=== PATIENT | female | born 1995 | race American Indian/Alaskan Native ===

== ENCOUNTER 2018-12-10 18:35 | Observation (INO) | payer BC ==
[2018-12-10 18:43] VITALS: BMI 33.5
[2018-12-10 20:16] LABS: BASO # 0.06 K/mm3 (0.0-2.0); BASO % 0.8 % (0.0-3.0); EOS # 0.1 (0.0-0.7); EOS % 0.6 % (1.5-5.0); HEMOGLOBIN 11.6 g/dL (12.0-16.0); LYMPH # 2.9 (1.2-3.4); LYMPH % 37.1 % (22.0-35.0); MEAN CORPUSCULAR HEMOGLOBIN 26.6 pg (25.0-35.0); MEAN CORPUSCULAR HGB CONC 32.9 g/dl (31.0-37.0); MEAN PLATELET VOLUME 9.2 fl (7.0-11.0); MONO # 0.6 (0.1-0.6); RBC 4.36 10^6/uL (3.5-6.1); RED CELL DISTRIBUTION WIDTH 15.1 % (11.5-14.5); WHITE BLOOD COUNT 7.9 10^3/uL (4.5-11.0)
--- NOTE | 2018-12-10 20:18 | ED PDOC ---
Arrival/HPI - General Chief Complaint: Breast Problem Time Seen by Provider: 12/10/18 18:37 Historian: Patient - History of Present Illness Narrative History of Present Illness (Text): 12/10/18 21:02 23-year-old female presents today with a one-week history of left-sided breast tenderness, redness and painful lump noted around the nipple. Patient denies fevers or chills. Denies any trauma or injury. Patient states about a week ago she had some soreness to the left breast and then noted a small lump that has been increasing in size. Patient states about the time that she noticed the lump she noticed some erythema and swelling surrounded the areola. Past Medical History - Provider Review Nursing Documentation Reviewed: Yes - Travel History Have you recently traveled outside [place] w/in the past 3 mons?: No - Infectious Disease Hx of Infectious Diseases: None - Psychiatric Hx Substance Use: Yes - Anesthesia Hx Anesthesia: No Family/Social History - Physician Review Nursing Documentation Reviewed: Yes Family/Social History: Unknown Family HX Smoking Status: Never Smoked Hx Alcohol Use: No Hx Substance Use: Yes Substance used: marijuana Allergies/Home Meds Allergies/Adverse Reactions: Allergies No Known Allergies Allergy (Verified 12/10/18 18:43) Home Medications: Home Meds Medication Instructions Recorded Confirmed No Known Home Med 12/10/18 12/10/18 Review of Systems - Review of Systems Constitutional: absent: Fatigue, Fevers Respiratory: absent: SOB, Cough Cardiovascular: absent: Chest Pain, Palpitations Gastrointestinal: absent: Abdominal Pain, Nausea, Vomiting Genitourinary Female: Other (breast pain) Musculoskeletal: absent: Back Pain, Neck Pain Skin: Cellulitis Neurological: absent: Headache, Dizziness Psychiatric: absent: Anxiety, Depression Physical Exam Vital Signs Reviewed: Yes Vital Signs Temp Pulse Resp BP Pulse Ox 12/10/18 18:43 98.6 F 94 H 18 137/89 99 Temperature: Afebrile Blood Pressure: Normal Pulse: Regular Respiratory Rate: Normal Appearance: Positive for: Well-Appearing, Non-Toxic, Comfortable Pain Distress: None Mental Status: Positive for: Alert and Oriented X 3 - Systems Exam Head: Present: Atraumatic Mouth: Present: Moist Mucous Membranes Neck: Present: Normal Range of Motion Respiratory/Chest: Present: Clear to Auscultation, Good Air Exchange. No: Respiratory Distress, Accessory Muscle Use Cardiovascular: Present: Regular Rate and Rhythm, Normal S1, S2. No: Murmurs Abdomen: No: Tenderness Breast/Axillary: Present: Erythema, Masses, Swelling, Tender to Palpation (left breast; there is a 3cm round tender mass noted posterior to the areola; + surrounding erythema around the areola. inverted nipped bilaterally. ). No: Axillary Lymphad, Nipple Discharge Neurological: Present: GCS=15 Skin: Present: Warm, Dry, Normal Color Psychiatric: Present: Alert, Oriented x 3 Medical Decision Making ED Course and Treatment: 12/10/18 21:05 23yr old female with 1 week history of left breast pain/swelling/mass. cbc; wnl cmp; wnl US of left breast; FINDINGS: SOLID MASSES: In the retroareolar region of interest; there is demonstration of an approximately 1.6 x 1.4 x 1.6 cm round solid heterogeneous mass. The possibility of intraductal papilloma or malignancy should be considered. No definite ductal dilatation is identified. Consideration could be given to correlation with mammography and/or MRI for further definition. CYSTIC MASSES: None. ARCHITECTURAL DISTORTION: None. ACOUSTICAL SHADOWING: None. SKIN THICKENING: None. AXILLARY ADENOPATHY: None. IMPRESSION: In the left retroareolar region; there is demonstration of an approximately 1.6 x 1.4 x 1.6 round solid heterogeneous mass. Considerations thought likely incl ude intraductal papilloma or malignancy. Consideration could be given to correlation with mammography and/or MRI for further definition. Electronically signed on December 10, 2018 10:24:22 PM EDT by: Bigg Feng M.D., M.B.A., Certified By [employer] Trained MRI and CT Specialist Clinically the patient is felt to have a cellulitis with abscess. Patient was started on vancomycin and Rocephin IV. Case was discussed with Dr. Lockhart in depth accepts observational status admission to [facility]. Case was discussed with the certified surgical first assistant in depth. all results discussed with patient and parent in depth. Impression: Cellulitis of breast, breast mass Admit obs [facility] Reassessment Condition: Re-examined, Improved - RAD Interpretation Radiology Orders: 12/10/18 19:30 BREAST UNILATERAL LEFT [US] Stat Disposition/Present on Arrival - Present on Arrival Any Indicators Present on Arrival: No History of DVT/PE: No History of Uncontrolled Diabetes: No Urinary Catheter: No History of Decub. Ulcer: No History Surgical Site Infection Following: None - Disposition Have Diagnosis and Disposition been Completed?: Yes Diagnosis: Cellulitis of breast, Breast mass Disposition: HOSPITALIZED Disposition Time: 23:00 Patient Plan: Observation Patient Problems: Current Active Problems Problem Status Onset Breast mass Acute Cellulitis of breast Acute Condition: FAIR
[2018-12-10 20:28] LABS: ALB/GLOB RATIO 1.5 (1.1-1.8); ALBUMIN 4.4 g/dL (3.0-4.8); ALT/SGPT 31 U/L (7-56); AST/SGOT 34 U/L (14-36); BLOOD UREA NITROGEN 13 mg/dL (7-21); CALCIUM 9.7 mg/dL (8.4-10.5); GFR NON-AFRICAN AMERICAN > 60
[2018-12-10] MEDS ORDERED: cefTRIAXone 1 gm 1 GM/100 ML BAG IVPB STA (23:14)
[2018-12-10] MEDS ORDERED: Vancomycin 1gm in NS 250ml 1 GM/250 ML BAG IVPB STA (23:14)
--- NOTE | 2018-12-11 00:05 | CP.PCM.HP ---
<Rigo Ren - Last Filed: 12/11/18 02:41> History of Present Illness - History of Present Illness History of Present Illness: HISTORY & PHYSICAL NOTE FOR HOSPITALIST SERVICE- DR. MEHDI REN PGY1 23 y/o F with no significant PMH presents to ED with complaint of L breast mass with areolar dimpling that she noticed about last week. She reports it is tender to palpation and hard. She reports she hasn't had symptoms like this before and doesn't usually notice breast nodules during her menstrual cycles. She denies any recent trauma to the area, galactorrhea or any other discharge. She denies any history of . She reports that she had about 40 pound intentional weight loss over the past 6 months. She has never had a mammogram done. She has no family history of breast cancer. She reports she had a Mirena IUD placed in 10/2017 until 02/2018. She reports regular menstrual cycles every 28 days lasting 3-4 days. LMP 11/25/18. She denies fevers, chills, night sweats, headache, dizziness, numbness, tingling, chest pain, palpitations, shortness of breath, nausea, vomiting, constipation, diarrhea, dysuria, hematuria. PMH: denies All: NKDA PSH: none SH: smokes marijuana daily. Denies ETOH or other illicit drug use. No IVDA Hosp: Denies recent FM: Mother: alive. At bedside. No medical problems. No breast cancer, no previous biopsies. Father: alive, healthy. Grandmother: HTN, no cancer Meds: none PMD: None Present on Admission - Present on Admission Any Indicators Present on Admission: No Review of Systems - Review of Systems Review of Systems: per HPI Past Patient History - Infectious Disease Hx of Infectious Diseases: None - Past Social History Smoking Status: Never Smoked - PSYCHIATRIC Hx Substance Use: Yes - SURGICAL HISTORY Hx Surgeries: No - ANESTHESIA Hx Anesthesia: No Meds Allergies/Adverse Reactions: Allergies Allergy/AdvReac Type Severity Reaction Status Date / Time No Known Allergies Allergy Verified 12/10/18 18:43 Physical Exam - Constitutional Appears: Well, Non-toxic, No Acute Distress - Head Exam Head Exam: NORMAL INSPECTION, NORMOCEPHALIC - Eye Exam Eye Exam: EOMI, Normal appearance - ENT Exam ENT Exam: Mucous Membranes Moist, Normal Exam - Neck Exam Neck exam: Positive for: Normal Inspection - Respiratory Exam Respiratory Exam: Clear to Auscultation Bilateral, NORMAL BREATHING PATTERN - Cardiovascular Exam Cardiovascular Exam: REGULAR RHYTHM, +S1, +S2 - GI/Abdominal Exam GI & Abdominal Exam: Soft. absent: Tenderness - Extremities Exam Extremities exam: Positive for: normal inspection. Negative for: calf tenderness - Back Exam Back exam: NORMAL INSPECTION - Neurological Exam Neurological exam: Alert, Oriented x3 - Psychiatric Exam Psychiatric exam: Normal Affect, Normal Mood - Skin Skin Exam: Dry, Intact, Warm Additional comments: Breast exam: R breast: normal appearance. Dimpled. No discharge, masses felt on palpation L breast: L nipple dimpling 5cm x 5cm circular region mild erythema around L areola 4cm x 4xm round circular, hard mass noted on palpation No nipple discharge Results - Vital Signs Recent Vital Signs: Last Vital Signs Temp 98.6 F 12/10/18 18:43 Pulse 94 H 12/10/18 18:43 Resp 18 12/10/18 18:43 BP 137/89 12/10/18 18:43 Pulse Ox 99 12/10/18 18:43 - Labs Result Diagrams: 12/10/18 20:10 12/10/18 20:10 Labs: Laboratory Results - last 24 hr 12/10/18 12/10/18 20:10 20:10 WBC 7.9 RBC 4.36 Hgb 11.6 L Hct 35.3 L MCV 81.0 MCH 26.6 MCHC 32.9 RDW 15.1 H Plt Count 398 MPV 9.2 Neut % (Auto) 53.5 Lymph % (Auto) 37.1 H [place] % (Auto) 8.0 H Eos % (Auto) 0.6 L Baso % (Auto) 0.8 Lymph # (Auto) 2.9 [place] # (Auto) 0.6 Eos # (Auto) 0.1 Baso # (Auto) 0.06 Absolute Neuts (auto) 4.21 Sodium 140 Potassium 4.3 Chloride 105 Carbon Dioxide 27 Anion Gap 13 BUN 13 Creatinine 0.7 Est GFR ( Amer) > 60 Est GFR (Non-Af Amer) > 60 Random Glucose 83 Calcium 9.7 Total Bilirubin 0.4 AST 34 ALT 31 Alkaline Phosphatase 49 Total Protein 7.5 Albumin 4.4 Globulin 3.0 Albumin/Globulin Ratio 1.5 Assessment & Plan - Assessment and Plan (Free Text) Assessment: 23 y/o F with no significant PMH presents for L sided breast abscess/mass Plan: L breast mass U/S 12/10: In the left retroareolar region; there is demonstration of an approximately 1.6 x 1.4 x 1.6 round solid heterogeneous mass. Considerations thought likely include intraductal papilloma or malignancy. Consideration could be given to correlation with mammography and/or MRI for further definition. -Pt is afebrile, normotensive. No discharge from breast. -s/p vanc/rocephin given in ED -start therapeutic cefazolin to cover MSSA -f/u official ultrasound read -General surgery consulted, will appreciate recs DVT PPX: SCD Case reviewed with attending physician, Dr. Mehdi Ren PGY1 <Cecy Lockhart - Last Filed: 12/11/18 03:28> Results - Vital Signs Recent Vital Signs: Last Vital Signs Temp 98.6 F 12/10/18 18:43 Pulse 90 12/10/18 22:00 Resp 16 12/11/18 01:34 BP 126/83 12/10/18 22:00 Pulse Ox 99 12/10/18 22:00 - Labs Result Diagrams: 12/10/18 20:10 12/10/18 20:10 Labs: Laboratory Results - last 24 hr 12/10/18 12/10/18 12/10/18 20:10 20:10 20:10 WBC 7.9 RBC 4.36 Hgb 11.6 L Hct 35.3 L MCV 81.0 MCH 26.6 MCHC 32.9 RDW 15.1 H Plt Count 398 MPV 9.2 Neut % (Auto) 53.5 Lymph % (Auto) 37.1 H [place] % (Auto) 8.0 H Eos % (Auto) 0.6 L Baso % (Auto) 0.8 Lymph # (Auto) 2.9 [place] # (Auto) 0.6 Eos # (Auto) 0.1 Baso # (Auto) 0.06 Absolute Neuts (auto) 4.21 Sodium 140 Potassium 4.3 Chloride 105 Carbon Dioxide 27 Anion Gap 13 BUN 13 Creatinine 0.7 Est GFR ( Amer) > 60 Est GFR (Non-Af Amer) > 60 Random Glucose 83 Calcium 9.7 Total Bilirubin 0.4 AST 34 ALT 31 Alkaline Phosphatase 49 Total Protein 7.5 Albumin 4.4 Globulin 3.0 Albumin/Globulin Ratio 1.5 Triglycerides 74 Cholesterol 168 LDL Cholesterol Direct 66 HDL Cholesterol 90 H Urine Color Urine Appearance Urine pH Ur Specific [place] Urine Protein Urine Glucose (UA) Urine Ketones Urine Blood Urine Nitrate Urine Bilirubin Urine Urobilinogen Ur Leukocyte Esterase Urine Opiates Screen Urine Methadone Screen Ur Barbiturates Screen Ur Phencyclidine Scrn Ur Amphetamines Screen U Benzodiazepines Scrn U Oth Cocaine Metabols U Cannabinoids Screen 12/11/18 12/11/18 00:46 00:48 WBC RBC Hgb Hct MCV MCH MCHC RDW Plt Count MPV Neut % (Auto) Lymph % (Auto) [place] % (Auto) Eos % (Auto) Baso % (Auto) Lymph # (Auto) [place] # (Auto) Eos # (Auto) Baso # (Auto) Absolute Neuts (auto) Sodium Potassium Chloride Carbon Dioxide Anion Gap BUN Creatinine Est GFR ( Amer) Est GFR (Non-Af Amer) Random Glucose Calcium Total Bilirubin AST ALT Alkaline Phosphatase Total Protein Albumin Globulin Albumin/Globulin Ratio Triglycerides Cholesterol LDL Cholesterol Direct HDL Cholesterol Urine Color Yellow Urine Appearance Sl cloudy Urine pH 7.0 Ur Specific [place] 1.020 Urine Protein Negative Urine Glucose (UA) Negative Urine Ketones Negative Urine Blood Negative Urine Nitrate Negative Urine Bilirubin Negative Urine Urobilinogen 4.0 H Ur Leukocyte Esterase Negative Urine Opiates Screen Negative Urine Methadone Screen Negative Ur Barbiturates Screen Negative Ur Phencyclidine Scrn Negative Ur Amphetamines Screen Negative U Benzodiazepines Scrn Negative U Oth Cocaine Metabols Negative U Cannabinoids Screen Positive H Attending/Attestation - Attestation I have personally seen and examined this patient.: Yes I have fully participated in the care of the patient.: Yes I have reviewed all pertinent clinical information: Yes Notes (Text): 12/11/18 03:04 Pt seen with the resident by the bedside. Case discussed in detail. Agree with assessment,documentation and plan of treatment. 12/11/18 03:25
[2018-12-11 01:18] LABS: HDL CHOLESTEROL 90 mg/dL (29-60)
[2018-12-11 01:29] LABS: LDL CHOLESTEROL 66 mg/dL (0-129)
[2018-12-11 01:35] LABS: BARBITURATES, UR NEGATIVE (NEGATIVE); BENZODIAZEPINES, UR NEGATIVE (NEGATIVE); OPIATES, UR NEGATIVE (NEGATIVE); PHENCYCLIDINE, UR NEGATIVE (NEGATIVE)
[2018-12-11 01:37] LABS: URINE BILIRUBIN NEGATIVE (NEGATIVE); URINE BLOOD NEGATIVE (NEGATIVE); URINE GLUCOSE (UA) NEGATIVE (NEGATIVE); URINE LEUKOCYTE ESTERASE NEGATIVE Leu/uL (NEGATIVE); URINE PROTEIN NEGATIVE mg/dL (<30 mg/dL)
[2018-12-11 01:38] LABS: URINE APPEARANCE SL CLOUDY (CLEAR); URINE COLOR YELLOW (YELLOW)
--- NOTE | 2018-12-11 03:49 | CP.PCM.CON ---
History of Present Illness - History of Present Illness History of Present Illness: General Surgery Consult Re: L breast abscess HPI: 23F presented to ER complaining of L breast lump and progressive tenderness x 1 week. She stated it is under the L nipple, hard, inflamed and slowly worsened. She never felt any masses or had similar symptoms in the past. Denies recent trauma to the area, galactorrhea or any other nipple discharge. Denies recent or . Reports 40 pound intentional weight loss in the past 6 months. No prior mammogram. Her only contraceptive use was a Mirena IUD placed in 10/2017 until 02/2018. LMP 11/25/18, and her mensrual cycles are regular. Denies fevers, chills, headache, dizziness, chest pain, palpitations, shortness of breath, nausea, vomiting, constipation, diarrhea, dysuria, hematuria. PMH: Denies PSH: Denies SH: No tobacco use. Occasional Social EtOH. Almost daily THC use FH: No history of cancer in family Meds: Denies All: NKDA Review of Systems - Review of Systems All systems: reviewed and no additional remarkable complaints except (as per HPI) Past Patient History - Infectious Disease Hx of Infectious Diseases: None - Past Social History Smoking Status: Never Smoked - HEENT Hx HEENT Problems: No - INTEGUMENTARY Hx Dermatological Problems: No - MUSCULOSKELETAL/RHEUMATOLOGICAL Hx Falls: No Hx Unsteady Gait: No - GASTROINTESTINAL Hx Gastrointestinal Disorders: No - GENITOURINARY/GYNECOLOGICAL Hx Genitourinary Disorders: No - PSYCHIATRIC Hx Substance Use: Yes - SURGICAL HISTORY Hx Surgeries: No - ANESTHESIA Hx Anesthesia: No Meds Allergies/Adverse Reactions: Allergies Allergy/AdvReac Type Severity Reaction Status Date / Time No Known Allergies Allergy Verified 12/10/18 18:43 - Medications Medications: Current Medications Cefazolin Sodium (Ancef 1gm In Ns) 1 gm in 100 mls @ 100 mls/hr IVPB Q8 AHMET; Protocol Physical Exam - Constitutional Appears: Non-toxic, No Acute Distress - Head Exam Head Exam: ATRAUMATIC, NORMOCEPHALIC - Eye Exam Eye Exam: EOMI, PERRL. absent: Scleral icterus - ENT Exam ENT Exam: Mucous Membranes Moist Additional comments: trachea midline - Neck Exam Neck exam: Positive for: Full Rom. Negative for: Lymphadenopathy, Tenderness - Respiratory Exam Respiratory Exam: NORMAL BREATHING PATTERN. absent: Respiratory Distress - Cardiovascular Exam Cardiovascular Exam: RRR. absent: Bradycardia, Tachycardia - GI/Abdominal Exam GI & Abdominal Exam: Soft. absent: Distended, Tenderness - Rectal Exam Rectal Exam: Deferred - Extremities Exam Extremities exam: Positive for: normal capillary refill. Negative for: calf tenderness, pedal edema - Back Exam Back exam: absent: CVA tenderness (L), CVA tenderness (R) - Neurological Exam Neurological exam: Alert, Oriented x3 - Skin Skin Exam: Dry, Warm - Additional Findings Additional findings: R breast: Normal appearance. Nipple inverted. No discharge, masses felt on p alpation. No axillary lymphadenopathy L breast: L nipple inverted. 5cm x 5cm circular region mild erythema around L areola. 3cm x 3cm round circular, hard mass noted on palpation in L upper outer qu adrant. Indurated, no fluctuance. No nipple discharge seen or expressed. No axillary lymphadenopathy. Nipple inversion noted to be her normal anatomy per pt. Nursing costumer present for breast exam. Results - Vital Signs Recent Vital Signs: Last Vital Signs Temp 98.6 F 12/10/18 18:43 Pulse 90 12/10/18 22:00 Resp 16 12/11/18 01:34 BP 126/83 12/10/18 22:00 Pulse Ox 99 12/10/18 22:00 - Labs Result Diagrams: 12/10/18 20:10 12/10/18 20:10 Labs: Laboratory Results - last 24 hr 12/10/18 12/10/18 12/10/18 20:10 20:10 20:10 WBC 7.9 RBC 4.36 Hgb 11.6 L Hct 35.3 L MCV 81.0 MCH 26.6 MCHC 32.9 RDW 15.1 H Plt Count 398 MPV 9.2 Neut % (Auto) 53.5 Lymph % (Auto) 37.1 H [place] % (Auto) 8.0 H Eos % (Auto) 0.6 L Baso % (Auto) 0.8 Lymph # (Auto) 2.9 [place] # (Auto) 0.6 Eos # (Auto) 0.1 Baso # (Auto) 0.06 Absolute Neuts (auto) 4.21 Sodium 140 Potassium 4.3 Chloride 105 Carbon Dioxide 27 Anion Gap 13 BUN 13 Creatinine 0.7 Est GFR ( Amer) > 60 Est GFR (Non-Af Amer) > 60 Random Glucose 83 Calcium 9.7 Total Bilirubin 0.4 AST 34 ALT 31 Alkaline Phosphatase 49 Total Protein 7.5 Albumin 4.4 Globulin 3.0 Albumin/Globulin Ratio 1.5 Triglycerides 74 Cholesterol 168 LDL Cholesterol Direct 66 HDL Cholesterol 90 H Urine Color Urine Appearance Urine pH Ur Specific [place] Urine Protein Urine Glucose (UA) Urine Ketones Urine Blood Urine Nitrate Urine Bilirubin Urine Urobilinogen Ur Leukocyte Esterase Urine Opiates Screen Urine Methadone Screen Ur Barbiturates Screen Ur Phencyclidine Scrn Ur Amphetamines Screen U Benzodiazepines Scrn U Oth Cocaine Metabols U Cannabinoids Screen 12/11/18 12/11/18 00:46 00:48 WBC RBC Hgb Hct MCV MCH MCHC RDW Plt Count MPV Neut % (Auto) Lymph % (Auto) [place] % (Auto) Eos % (Auto) Baso % (Auto) Lymph # (Auto) [place] # (Auto) Eos # (Auto) Baso # (Auto) Absolute Neuts (auto) Sodium Potassium Chloride Carbon Dioxide Anion Gap BUN Creatinine Est GFR ( Amer) Est GFR (Non-Af Amer) Random Glucose Calcium Total Bilirubin AST ALT Alkaline Phosphatase Total Protein Albumin Globulin Albumin/Globulin Ratio Triglycerides Cholesterol LDL Cholesterol Direct HDL Cholesterol Urine Color Yellow Urine Appearance Sl cloudy Urine pH 7.0 Ur Specific [place] 1.020 Urine Protein Negative Urine Glucose (UA) Negative Urine Ketones Negative Urine Blood Negative Urine Nitrate Negative Urine Bilirubin Negative Urine Urobilinogen 4.0 H Ur Leukocyte Esterase Negative Urine Opiates Screen Negative Urine Methadone Screen Negative Ur Barbiturates Screen Negative Ur Phencyclidine Scrn Negative Ur Amphetamines Screen Negative U Benzodiazepines Scrn Negative U Oth Cocaine Metabols Negative U Cannabinoids Screen Positive H - Imaging and Cardiology breast US Status: Image reviewed by me, Report reviewed by me (preliminary) Assessment & Plan - Assessment and Plan (Free Text) Assessment: 23F with Left upper outer quadrant breast abscess and L ciarra-areolar cellulitis Plan: - Continue abx - Warm compresses to area - Monitor for drainage/increased area of cellulitis - May consider aspiration to evaluate fluid Will D/W Dr. Nic Bateman PGY4
[2018-12-11] MEDS ORDERED: ceFAZolin 1 gm in NS 1 GM/100 ML BAG IVPB SCH (06:00)
[2018-12-11] MEDS: SULBACTAM IVPB SCH ×4 (06:57→22:18)
[2018-12-11] MEDS: AMPICILLIN IVPB SCH ×4 (06:57→22:18)
--- NOTE | 2018-12-11 13:33 | US ---
Date of service: 12/10/2018 HISTORY: Painful left breast lump adjacent to the nipple. LMP 11/25/2018 TECHNIQUE: Sonographic evaluation of both breast was performed. FINDINGS: RIGHT BREAST: Irregular solid mass corresponding findings on physical examination 1.4 x 1.5 x 1.6 cm. Peripheral hypervascularity Adjacent cutaneous and subcutaneous edema. Dilated duct 12:00 o'clock with debris. Diameter 4.6 mm. IMPRESSION: Solid irregular mass corresponding findings on physical examination. Increased vascularity, subcutaneous edema/cutaneous thickening. Findings are in all likelihood infectious/inflammatory. Dilated duct complaining debris. Recommend short-term interval follow-up following treatment. BIRADS: BIRADS 3 Probably Benign Recommendation: Short-interval follow-up advised for what is likely an infectious/inflammatory process/mastitis
[2018-12-11 15:32] VITALS: RESP 18
[2018-12-12] MEDS: AMPICILLIN IVPB SCH ×2 (03:58→10:02)
[2018-12-12] MEDS: SULBACTAM IVPB SCH ×2 (03:58→10:02)
[2018-12-12 07:40] LABS: BASO # 0.05 K/mm3 (0.0-2.0); BASO % 0.7 % (0.0-3.0); EOS # 0.1 (0.0-0.7); EOS % 1.2 % (1.5-5.0); HEMOGLOBIN 10.7 g/dL (12.0-16.0); LYMPH # 1.9 (1.2-3.4); LYMPH % 27.7 % (22.0-35.0); MEAN CELL VOLUME 81.1 fl (80.0-105.0); MEAN CORPUSCULAR HEMOGLOBIN 25.9 pg (25.0-35.0); MEAN CORPUSCULAR HGB CONC 31.9 g/dl (31.0-37.0); MEAN PLATELET VOLUME 8.9 fl (7.0-11.0); MONO # 0.8 (0.1-0.6); MONO % 11.8 % (1.0-6.0); RBC 4.13 10^6/uL (3.5-6.1); RED CELL DISTRIBUTION WIDTH 15.2 % (11.5-14.5); WHITE BLOOD COUNT 6.8 10^3/uL (4.5-11.0)
[2018-12-12 07:50] VITALS: BP 132/77; PULSE 62; TEMP 98.2; O2SAT 100
[2018-12-12 07:56] LABS: ALB/GLOB RATIO 1.3 (1.1-1.8); ALBUMIN 3.7 g/dL (3.0-4.8); ALT/SGPT 35 U/L (7-56); AST/SGOT 21 U/L (14-36); BLOOD UREA NITROGEN 13 mg/dL (7-21); CALCIUM 8.8 mg/dL (8.4-10.5); GFR NON-AFRICAN AMERICAN > 60
--- NOTE | 2018-12-12 08:50 | CP.PCM.PN ---
Subjective - Date & Time of Evaluation Date of Evaluation: 12/12/18 Time of Evaluation: 06:40 - Subjective Subjective: General Surgery Pt seen and examined. Feeling better this AM. Pain much better. Redness decreased. Pt wants to know when she can leave. Denies Fever/chills. Objective - Vital Signs/Intake and Output Vital Signs (last 24 hours): Temp Pulse Resp BP Pulse Ox 98.2 F 62 18 132/77 100 12/12/18 06:00 12/12/18 06:00 12/12/18 06:00 12/12/18 06:00 12/12/18 06:00 - Medications Medications: Current Medications Ampicillin Sodium/Sulbactam Sodium (Unasyn) 1.5 gm in 100 mls @ 100 mls/hr IVPB Q6H AHMET; Protocol Last Admin: 12/12/18 03:58 Dose: 100 mls/hr Ibuprofen (Motrin Tab) 400 mg PO Q6H PRN PRN Reason: Pain, Mild (1-3) Last Admin: 12/11/18 22:21 Dose: 400 mg - Labs Labs: 12/12/18 07:30 12/12/18 07:30 - Constitutional Appears: Non-toxic, No Acute Distress - Head Exam Head Exam: ATRAUMATIC, NORMOCEPHALIC - Eye Exam Eye Exam: EOMI, PERRL. absent: Scleral icterus - Respiratory Exam Respiratory Exam: NORMAL BREATHING PATTERN. absent: Respiratory Distress - Neurological Exam Neurological Exam: Alert, Awake - Skin Skin Exam: Dry, Warm - Additional Findings Additional findings: L breast: L nipple inverted. 4cm x 4cm circular region mild erythema around L areola. 3cm x 3cm round circular, hard mass noted on palpation in L upper outer quadrant. Indurated, no fluctuance. No nipple discharge seen or expressed. No axillary lymphadenopathy. Assessment and Plan - Assessment and Plan (Free Text) Assessment: 23F with Left upper outer quadrant breast abscess and L ciarra-areolar cellulitis Plan: - Can convert to PO abx - COntinue warm compresses to area -Follow up with Dr. Lucero as an outpatient in 1 week or earlier if symptoms worsen D/W Dr. Nic Bateman PGY4
--- NOTE | 2018-12-12 13:19 | CP.PCM.DIS ---
<Long Gutierrez - Last Filed: 12/12/18 13:37> Provider - Provider Date of Admission: 12/10/18 23:14 Attending physician: Yanique Johnson MD Consults: 12/11/18 01:30 General Surgery Consult Routine Comment: Consulting Provider: Brayan Lucero Consulting Physician: Brayan Lucero Reason for Consult: L breast abscess Time Spent in preparation of Discharge (in minutes): 45 Hospital Course - Lab Results Lab Results: Micro Results 12/10/18 21:30 Blood Blood Culture - Preliminary NO GROWTH AFTER 24 HOURS 12/10/18 20:10 Blood Blood Culture - Preliminary NO GROWTH AFTER 24 HOURS Most Recent Lab Values WBC 6.8 10^3/uL (4.5-11.0) 12/12/18 07:30 RBC 4.13 10^6/uL (3.5-6.1) 12/12/18 07:30 Hgb 10.7 g/dL (12.0-16.0) L 12/12/18 07:30 Hct 33.5 % (36.0-48.0) L 12/12/18 07:30 MCV 81.1 fl (80.0-105.0) 12/12/18 07:30 MCH 25.9 pg (25.0-35.0) 12/12/18 07:30 MCHC 31.9 g/dl (31.0-37.0) 12/12/18 07:30 RDW 15.2 % (11.5-14.5) H 12/12/18 07:30 Plt Count 329 10^3/uL (120.0-450.0) 12/12/18 07:30 MPV 8.9 fl (7.0-11.0) 12/12/18 07:30 Neut % (Auto) 58.6 % (50.0-68.0) 12/12/18 07:30 Lymph % (Auto) 27.7 % (22.0-35.0) 12/12/18 07:30 Pike % (Auto) 11.8 % (1.0-6.0) H 12/12/18 07:30 Eos % (Auto) 1.2 % (1.5-5.0) L 12/12/18 07:30 Baso % (Auto) 0.7 % (0.0-3.0) 12/12/18 07:30 Lymph # (Auto) 1.9 (1.2-3.4) 12/12/18 07:30 [place]ike # (Auto) 0.8 (0.1-0.6) H 12/12/18 07:30 Eos # (Auto) 0.1 (0.0-0.7) 12/12/18 07:30 Baso # (Auto) 0.05 K/mm3 (0.0-2.0) 12/12/18 07:30 Absolute Neuts (auto) 3.96 (1.4-6.5) 12/12/18 07:30 Sodium 138 mmol/L (132-148) 12/12/18 07:30 Potassium 4.1 mmol/L (3.6-5.0) 12/12/18 07:30 Chloride 109 mmol/L (98-107) H 12/12/18 07:30 Carbon Dioxide 22 mmol/L (21-33) 12/12/18 07:30 Anion Gap 12 (10-20) 12/12/18 07:30 BUN 13 mg/dL (7-21) 12/12/18 07:30 Creatinine 0.7 mg/dl (0.7-1.2) 12/12/18 07:30 Est GFR ( Amer) > 60 12/12/18 07:30 Est GFR (Non-Af Amer) > 60 12/12/18 07:30 Random Glucose 82 mg/dL (70-110) 12/12/18 07:30 Hemoglobin A1c 5.2 % (4.2-6.5) 12/10/18 20:10 Calcium 8.8 mg/dL (8.4-10.5) 12/12/18 07:30 Phosphorus 4.3 mg/dL (2.5-4.5) 12/12/18 07:30 Magnesium 1.7 mg/dL (1.7-2.2) 12/12/18 07:30 Total Bilirubin 0.2 mg/dL (0.2-1.3) 12/12/18 07:30 AST 21 U/L (14-36) 12/12/18 07:30 ALT 35 U/L (7-56) 12/12/18 07:30 Alkaline Phosphatase 47 U/L (38-126) 12/12/18 07:30 Total Protein 6.6 g/dL (5.8-8.3) 12/12/18 07:30 Albumin 3.7 g/dL (3.0-4.8) 12/12/18 07:30 Globulin 2.9 gm/dL 12/12/18 07:30 Albumin/Globulin Ratio 1.3 (1.1-1.8) 12/12/18 07:30 Triglycerides 74 mg/dL (35-160) 12/10/18 20:10 Cholesterol 168 mg/dL (130-200) 12/10/18 20:10 LDL Cholesterol Direct 66 mg/dL (0-129) 12/10/18 20:10 HDL Cholesterol 90 mg/dL (29-60) H 12/10/18 20:10 Procalcitonin < 0.05 NG/ML (0.19-0.49) L 12/10/18 20:10 Urine Color Yellow (YELLOW) 12/11/18 00:48 Urine Appearance Sl cloudy (CLEAR) 12/11/18 00:48 Urine pH 7.0 (4.7-8.0) 12/11/18 00:48 Ur Specific [place] 1.020 (1.005-1.035) 12/11/18 00:48 Urine Protein Negative mg/dL (<30 mg/dL) 12/11/18 00:48 Urine Glucose (UA) Negative mg/dL (NEGATIVE) 12/11/18 00:48 Urine Ketones Negative mg/dL (NEGATIVE) 12/11/18 00:48 Urine Blood Negative (NEGATIVE) 12/11/18 00:48 Urine Nitrate Negative (NEGATIVE) 12/11/18 00:48 Urine Bilirubin Negative (NEGATIVE) 12/11/18 00:48 Urine Urobilinogen 4.0 E.U./dL (<1 E.U./dL) H 12/11/18 00:48 Ur Leukocyte Esterase Negative Susan/uL (NEGATIVE) 12/11/18 00:48 Urine Opiates Screen Negative (NEGATIVE) 12/11/18 00:46 Urine Methadone Screen Negative (NEGATIVE) 12/11/18 00:46 Ur Barbiturates Screen Negative (NEGATIVE) 12/11/18 00:46 Ur Phencyclidine Scrn Negative (NEGATIVE) 12/11/18 00:46 Ur Amphetamines Screen Negative (NEGATIVE) 12/11/18 00:46 U Benzodiazepines Scrn Negative (NEGATIVE) 12/11/18 00:46 U Oth Cocaine Metabols Negative (NEGATIVE) 12/11/18 00:46 U Cannabinoids Screen Positive (NEGATIVE) H 12/11/18 00:46 - Hospital Course Hospital Course: 23 y/o F with no significant PMH presented to ED with complaint of L breast mass that she noticed about last week. She reported it is tender to palpation and hard. she denied any recent trauma to the area, galactorrhea or any other discharge. She has never had a mammogram done. She has no family history of breast cancer. She reports regular menstrual cycles every 28 days lasting 3-4 days. LMP 11/25/18. She denies fevers, chills, night sweats, headache, dizziness, numbness, tingling, chest pain. Patient was admitted for left upper outer quadrant breast abscess and left ciarra-areolar cellulitis. Left breast US showed periaorlar irregular mass with subsequent edema/erythema and dilated ducts contains debris. Patient was afebrile, no leukocytosis. Started IV antibiotic Unasyn and ibuprofen for pain. Seen by surgery team who recommended to continue warm compresses and antibiotic. Patient was seen and examined.today, feeling better with pain improved and redness decreased, denies Fever/chills. She was advised to strt taking augmentin for 10 days and follow up with surgeon Dr. Lucero as an outpatient in 1 week or earlier if symptoms worsen. She is hemodynamically stable, afebrile and ready for discharge today. Additional instructions as below. Discharge Exam - Head Exam Head Exam: ATRAUMATIC, NORMAL INSPECTION, NORMOCEPHALIC - Eye Exam Eye Exam: EOMI, Normal appearance, PERRL Pupil Exam: NORMAL ACCOMODATION, PERRL - ENT Exam ENT Exam: Mucous Membranes Moist, Normal Exam - Neck Exam Neck exam: Full Rom, Normal Inspection - Respiratory Exam Respiratory Exam: Clear to PA & Lateral, NORMAL BREATHING PATTERN. absent: Rhonchi - Cardiovascular Exam Cardiovascular Exam: REGULAR RHYTHM, +S1, +S2. absent: Rubs - GI/Abdominal Exam GI & Abdominal Exam: Normal Bowel Sounds, Soft - Extremities Exam Extremities exam: normal capillary refill, pedal pulses present - Neurological Exam Neurological exam: Alert, CN II-XII Intact, Oriented x3 - Psychiatric Exam Psychiatric exam: Normal Affect, Normal Mood - Skin Skin Exam: Dry, Intact, Normal Color, Warm Additional comments: R breast: Normal appearance. Nipple inverted. No discharge, masses felt on palpation. No axillary lymphadenopathy L breast: L nipple inverted. 5cm x 5cm circular region mild erythema around L areola. Erythema decreased comprared to physical exam yesterday 3cm x 3cm round circular, hard mass noted on palpation in L upper outer quadrant. Indurated, no fluctuance. No nipple discharge seen or expressed. No axillary lymphadenopathy. Nipple inversion noted to be her normal anatomy per pt. Discharge Plan - Discharge Medications Prescriptions: Amoxicillin/Clavulanate [Augmentin 875 MG-125 MG] 1 tab PO DAILY 10 Days #10 tab - Follow Up Plan Condition: FAIR Disposition: HOME/ ROUTINE Instructions: Breast Ultrasound, Cellulitis (DC) Additional Instructions: -You are scheduled to see Dr Lockhart as your primary care doctor at [facility], first floor on Sunday12/16/2018 at 4 pm . -Please follow up with surgeon Dr Lucero at [facility] at within one week of discharge or sooner if symptoms worsen. -Please take antibiotic Augmentin for 10 days as prescribed. Take it with food. -Please apply hot compresses, elevate left breast with soft bra to alleviate pain and inflammation. -Please return to the emergency department if symptoms worsens or reoccur. Referrals: Brayan Lucero MD [Staff Provider] - Cecy Lockhart MD [Medical Doctor] - <Yanique Johnson - Last Filed: 12/13/18 13:21> Provider - Provider Date of Admission: 12/10/18 23:14 Attending physician: Yanique Johnson MD Consults: 12/11/18 01:30 General Surgery Consult Routine Comment: Consulting Provider: Brayan Lucero Consulting Physician: Brayan Lucero Reason for Consult: L breast abscess Hospital Course - Lab Results Lab Results: Micro Results 12/10/18 21:30 Blood Blood Culture - Preliminary NO GROWTH AFTER 48 HOURS 12/10/18 20:10 Blood Blood Culture - Preliminary NO GROWTH AFTER 48 HOURS Most Recent Lab Values WBC 6.8 10^3/uL (4.5-11.0) 12/12/18 07:30 RBC 4.13 10^6/uL (3.5-6.1) 12/12/18 07:30 Hgb 10.7 g/dL (12.0-16.0) L 12/12/18 07:30 Hct 33.5 % (36.0-48.0) L 12/12/18 07:30 MCV 81.1 fl (80.0-105.0) 12/12/18 07:30 MCH 25.9 pg (25.0-35.0) 12/12/18 07:30 MCHC 31.9 g/dl (31.0-37.0) 12/12/18 07:30 RDW 15.2 % (11.5-14.5) H 12/12/18 07:30 Plt Count 329 10^3/uL (120.0-450.0) 12/12/18 07:30 MPV 8.9 fl (7.0-11.0) 12/12/18 07:30 Neut % (Auto) 58.6 % (50.0-68.0) 12/12/18 07:30 Lymph % (Auto) 27.7 % (22.0-35.0) 12/12/18 07:30 Pike % (Auto) 11.8 % (1.0-6.0) H 12/12/18 07:30 Eos % (Auto) 1.2 % (1.5-5.0) L 12/12/18 07:30 Baso % (Auto) 0.7 % (0.0-3.0) 12/12/18 07:30 Lymph # (Auto) 1.9 (1.2-3.4) 12/12/18 07:30 [place]ike # (Auto) 0.8 (0.1-0.6) H 12/12/18 07:30 Eos # (Auto) 0.1 (0.0-0.7) 12/12/18 07:30 Baso # (Auto) 0.05 K/mm3 (0.0-2.0) 12/12/18 07:30 Absolute Neuts (auto) 3.96 (1.4-6.5) 12/12/18 07:30 Sodium 138 mmol/L (132-148) 12/12/18 07:30 Potassium 4.1 mmol/L (3.6-5.0) 12/12/18 07:30 Chloride 109 mmol/L (98-107) H 12/12/18 07:30 Carbon Dioxide 22 mmol/L (21-33) 12/12/18 07:30 Anion Gap 12 (10-20) 12/12/18 07:30 BUN 13 mg/dL (7-21) 12/12/18 07:30 Creatinine 0.7 mg/dl (0.7-1.2) 12/12/18 07:30 Est GFR ( Amer) > 60 12/12/18 07:30 Est GFR (Non-Af Amer) > 60 12/12/18 07:30 Random Glucose 82 mg/dL (70-110) 12/12/18 07:30 Hemoglobin A1c 5.2 % (4.2-6.5) 12/10/18 20:10 Calcium 8.8 mg/dL (8.4-10.5) 12/12/18 07:30 Phosphorus 4.3 mg/dL (2.5-4.5) 12/12/18 07:30 Magnesium 1.7 mg/dL (1.7-2.2) 12/12/18 07:30 Total Bilirubin 0.2 mg/dL (0.2-1.3) 12/12/18 07:30 AST 21 U/L (14-36) 12/12/18 07:30 ALT 35 U/L (7-56) 12/12/18 07:30 Alkaline Phosphatase 47 U/L (38-126) 12/12/18 07:30 Total Protein 6.6 g/dL (5.8-8.3) 12/12/18 07:30 Albumin 3.7 g/dL (3.0-4.8) 12/12/18 07:30 Globulin 2.9 gm/dL 12/12/18 07:30 Albumin/Globulin Ratio 1.3 (1.1-1.8) 12/12/18 07:30 Triglycerides 74 mg/dL (35-160) 12/10/18 20:10 Cholesterol 168 mg/dL (130-200) 12/10/18 20:10 LDL Cholesterol Direct 66 mg/dL (0-129) 12/10/18 20:10 HDL Cholesterol 90 mg/dL (29-60) H 12/10/18 20:10 Procalcitonin < 0.05 NG/ML (0.19-0.49) L 12/10/18 20:10 Urine Color Yellow (YELLOW) 12/11/18 00:48 Urine Appearance Sl cloudy (CLEAR) 12/11/18 00:48 Urine pH 7.0 (4.7-8.0) 12/11/18 00:48 Ur Specific [place] 1.020 (1.005-1.035) 12/11/18 00:48 Urine Protein Negative mg/dL (<30 mg/dL) 12/11/18 00:48 Urine Glucose (UA) Negative mg/dL (NEGATIVE) 12/11/18 00:48 Urine Ketones Negative mg/dL (NEGATIVE) 12/11/18 00:48 Urine Blood Negative (NEGATIVE) 12/11/18 00:48 Urine Nitrate Negative (NEGATIVE) 12/11/18 00:48 Urine Bilirubin Negative (NEGATIVE) 12/11/18 00:48 Urine Urobilinogen 4.0 E.U./dL (<1 E.U./dL) H 12/11/18 00:48 Ur Leukocyte Esterase Negative Susan/uL (NEGATIVE) 12/11/18 00:48 Urine Opiates Screen Negative (NEGATIVE) 12/11/18 00:46 Urine Methadone Screen Negative (NEGATIVE) 12/11/18 00:46 Ur Barbiturates Screen Negative (NEGATIVE) 12/11/18 00:46 Ur Phencyclidine Scrn Negative (NEGATIVE) 12/11/18 00:46 Ur Amphetamines Screen Negative (NEGATIVE) 12/11/18 00:46 U Benzodiazepines Scrn Negative (NEGATIVE) 12/11/18 00:46 U Oth Cocaine Metabols Negative (NEGATIVE) 12/11/18 00:46 U Cannabinoids Screen Positive (NEGATIVE) H 12/11/18 00:46 Attending/Attestation - Attestation I have personally seen and examined this patient.: Yes I have fully participated in the care of the patient.: Yes I have reviewed all pertinent clinical information, including history, physical exam and plan: Yes Notes (Text): 12/13/18 13:16 Attending note; Patient seen and examined with resident. Patient is alert and awake. Denies any fevers, chills. Denies any nausea, vomiting. Left breast redness and swelling is improved. Patient is a 23-year-old female with no significant PMH presented to ED with complaint of L breast mass/redness/swelling that she noticed about last week. She reported it is tender to palpation and hard. she denied any recent trauma to the area, galactorrhea or any other discharge. She has never had a mammogram done. She has no family history of breast cancer. 1. Left breast cellulitis; Ultrasound showed solid irregular mass 1.4 x 1.6 cm with increased vascularity and edema and thickening of the skin suggestive of infectious and inflammatory cause mastitis. Patient was treated with IV Unasyn. Surgery evaluation appreciated. Advised warm compress Patient will complete p.o. antibiotics for 1 week. Patient will follow-up with surgery Dr. Lucero in 1 week. Diagnosis, follow-up plan discussed with patient and patient's mother in detail. Follow-up with Dr. Lucero in 1 week. Might need repeat ultrasound.
== END 2018-12-12 13:43 | disposition home or self-care (01) ==
LOC: ED 18:35 → ERH 23:14 → 5RSO 12-11 00:50
PROVIDERS: ADMIT Internal Medicine; ATTEND Internal Medicine
DX: N61.1 Abscess of the breast and nipple (principal); F12.90 Cannabis use, unspecified, uncomplicated
CPT/HCPCS: 36415; 76641; 80053; 80061; 81003; 81025; 83036; 83735; 84100; 84145; 85025; 87040; 96365; 96374; 99285; G0378; G0480; J0295; J0696; J1885